=== PATIENT | female | born 1985 | race Caucasian/White ===

== ENCOUNTER 2020-12-25 21:46 | Emergency (ER) | payer OTHER, BC ==
--- NOTE | 2020-12-25 23:33 | EDM.PDOC ---
ED HPI GENERAL MEDICAL PROBLEM - General Chief Complaint: Lower Extremity Injury/Pain Stated Complaint: RT ANKLE INJURY Time Seen by Provider: 12/25/20 22:23 Source of Information: Reports: Patient History Limitations: Reports: No Limitations - History of Present Illness INITIAL COMMENTS - FREE TEXT/NARRATIVE: Patient is a 35-year-old female who twisted her right ankle while dancing in a lot of performance. Patient felt she heard a cracking sound and has had limited weightbearing ability since. She denies any other injuries or other concerns. Most of her swelling is laterally. She is taking nothing for current symptoms. Onset: Today, Sudden Duration: Constant Location: Reports: Lower Extremity, Right Quality: Reports: Ache Severity: Moderate Improves with: Reports: Rest Worsens with: Reports: Movement Context: Reports: Activity Associated Symptoms: Reports: No Other Symptoms Treatments STRANNER: Reports: Cold Therapy, NSAIDS Right Ankle Pain Score (Numeric/FACES): 2 - Related Data Allergies Allergy/AdvReac Type Severity Reaction Status Date / Time Penicillins Allergy Hives Verified 12/25/20 21:58 Home Meds: Home Meds Omeprazole 20 mg PO DAILY 12/25/20 [History] Past Medical History - Past Health History Medical/Surgical History: Denies Medical/Surgical History - Infectious Disease History Infectious Disease History: Reports: Chicken Pox, Influenza Social & Family History - Family History Family Medical History: No Pertinent Family History - Tobacco Use Tobacco Use Status *Q: Never Tobacco User Second Hand Smoke Exposure: No - Caffeine Use Caffeine Use: Reports: Coffee - Recreational Drug Use Recreational Drug Use: No Review of Systems - Review of Systems Review Of Systems: Comprehensive ROS is negative, except as noted in HPI. ED EXAM, GENERAL - Physical Exam Exam: See Below General Appearance: Alert, No Apparent Distress Head: Atraumatic Neck: Normal Inspection, Supple Respiratory/Chest: No Respiratory Distress Extremities: Joint Swelling, Leg Pain Neurological: Alert, Oriented Psychiatric: Normal Affect, Normal Mood Skin Exam: Warm, Dry, Normal Color Lymphatic: No Adenopathy Course - Vital Signs Text/Narrative:: Patient was sent for an x-ray of her ankle which shows no sign of fracture. We are placing her in an Aircast splint and crutches she is advised to stay off her ankle as long as it bothers her with use. [id number] Tylenol and ibuprofen as needed. Follow-up with PCP orthopedic provider if symptoms continue. Last Recorded V/S: Last Vital Signs Temp 98.6 F 12/25/20 22:00 Pulse 76 12/25/20 22:00 Resp 18 12/25/20 22:00 BP 128/87 12/25/20 22:00 Pulse Ox 98 12/25/20 22:00 - Orders/Labs/Meds Orders: Active Orders 24 hr Category Date Time Status Ankle Min 3V Rt [CR] Stat Exams 12/25/20 22:44 Taken Departure - Departure Time of Disposition: 23:42 Disposition: Home, Self-Care 01 Condition: Good Clinical Impression: Moderate right ankle sprain - Discharge Information Instructions: Ankle Sprain, [id number] Referrals: PCP,Not In Area [Primary Care Provider] - Forms: ED Department Discharge Additional Instructions: Follow-up with PCP or Ortho if not improving. Return to ER if worse. Aircast splint and crutches as needed. Ibuprofen and Tylenol as needed. Elevation ice while ankle swollen. Sepsis Event Note (ED) - Evaluation Sepsis Screening Result: No Definite Risk - Focused Exam Vital Signs: Vital Signs Temp Pulse Resp BP Pulse Ox 12/25/20 22:00 98.6 F 76 18 128/87 98 - My Orders Last 24 Hours: My Active Orders 12/25/20 22:44 Ankle Min 3V Rt [CR] Stat - Assessment/Plan Last 24 Hours: My Active Orders 12/25/20 22:44 Ankle Min 3V Rt [CR] Stat
--- NOTE | 2020-12-26 11:39 | CR ---
Right ankle: 3 views of the right ankle were obtained. Comparison: Prior right ankle study of 01/16/11. Soft tissue swelling is seen laterally. Ankle mortise is symmetric. Small bony densities are noted off the lateral talus compatible with mild cortical avulsion fractures. No additional fracture or other abnormality is appreciated. Impression: 1. Soft tissue swelling. 2. Small cortical avulsion fractures off the lateral talus. Diagnostic code #3
== END 2020-12-25 23:51 | disposition home or self-care (01) ==
LOC: JD.ED 21:46
DX: S93.401A Sprain of unspecified ligament of right ankle, initial encounter (principal); Z88.0 Allergy status to penicillin; X50.1XXA Overexertion from prolonged static or awkward postures, initial encounter; Y93.41 Activity, dancing
CPT/HCPCS: 73610-26-RT; 73610-RT; 99283; 99283-25

== ENCOUNTER 2020-12-27 13:59 | Emergency (ER) | payer OTHER, BC ==
--- NOTE | 2020-12-27 14:36 | EDM.PDOC ---
ED HPI GENERAL MEDICAL PROBLEM - General Chief Complaint: Lower Extremity Injury/Pain Stated Complaint: NEED SPLINT FOR RT ANKLE Time Seen by Provider: 12/27/20 14:15 Source of Information: Reports: Patient, RN Notes Reviewed - History of Present Illness INITIAL COMMENTS - FREE TEXT/NARRATIVE: 35 yr old female injured R foot ankle performing at the [facility] 2 days ago. Radiology report this morning has come back showing probable small cortical avulsion fractures off of the talus. I did call patient this morning and she has come back to ED for splint application. Still having quite a bit of discomfort, especially with any attempts at wt bearing. 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 Right Ankle Pain Score (Numeric/FACES): 9 - Related Data Allergies Allergy/AdvReac Type Severity Reaction Status Date / Time Penicillins Allergy Severe Hives Verified 12/27/20 14:28 Home Meds: Home Meds Omeprazole 20 mg PO DAILY 12/25/20 [History] Hydrocodone/Acetaminophen [Hydrocodone-Acetamin 5-325 mg] 1 each PO Q6HR PRN #14 tablet 12/27/20 [Rx] Past Medical History - Past Health History Medical/Surgical History: Denies Medical/Surgical History - Infectious Disease History Infectious Disease History: Reports: Chicken Pox, Influenza Social & Family History - Family History Family Medical History: No Pertinent Family History - Caffeine Use Caffeine Use: Reports: Coffee Review of Systems - Review of Systems Review Of Systems: See Below Constitutional: Reports: No Symptoms Respiratory: Reports: No Symptoms Cardiovascular: Reports: No Symptoms GI/Abdominal: Reports: No Symptoms Musculoskeletal: Reports: Foot Pain, Joint Pain Skin: Reports: Bruising (has developed R foot) ED EXAM, GENERAL - Physical Exam Exam: See Below General Appearance: Alert, No Apparent Distress ( at rest) Head: Atraumatic Neck: Supple Respiratory/Chest: No Respiratory Distress Extremities: Other (tender R lateral mid foot and R ankle, small amt of bruising now visible R lateral lower mid foot, nontender medially) Neurological: Alert, Oriented, No Motor/Sensory Deficits ED TRAUMA EXTREMITY PROCEDURES - Splinting Right Lower Extremity Splint Site: R foot, ankle Pre-Procedure NV Status: Normal Post-Procedure NV Status: Normal Splint Material: Fiberglass Splint Design: Posterior Applied & Form Fitted By: Provider Provider Post-Splint Application NV Check: NV Status Normal Course - Vital Signs Last Recorded V/S: Last Vital Signs Temp 97.6 F 12/27/20 14:19 Pulse 78 12/27/20 14:19 Resp 20 12/27/20 14:19 BP 128/80 12/27/20 14:19 Pulse Ox 100 12/27/20 14:19 - Re-Assessments/Exams Free Text/Narrative Re-Assessment/Exam: 12/27/20 15:38 X rays of the foot have been reviewed. cortical fragments off of the talus not readily visible but I do believe the Radiologist report. Short leg fiberglass splint applied. she has crutches. Discharge instr. as documented. Departure - Departure Time of Disposition: 14:33 Disposition: Home, Self-Care 01 Condition: Fair Clinical Impression: Foot fracture, right Qualifiers: Encounter type: initial encounter Fracture type: closed Qualified Code(s): S92.901A - Unspecified fracture of right foot, initial encounter for closed fracture Ankle sprain Qualifiers: Encounter type: initial encounter Involved ligament of ankle: unspecified ligament Laterality: right Qualified Code(s): S93.401A - Sprain of unspecified ligament of right ankle, initial encounter - Discharge Information Prescriptions: Hydrocodone/Acetaminophen [Hydrocodone-Acetamin 5-325 mg] 1 each PO Q6HR PRN #14 tablet PRN Reason: Pain Instructions: Tarsal Fracture Referrals: PCP,Not In Area [Primary Care Provider] - Forms: ED Department Discharge Additional Instructions: Our Radiologist has visualized some small bone densities off of the lateral talus bone of your R foot. Fiberglass splint. Ice packs and elevation for swelling. Alternate tylenol and ibuprofen as needed for discomfort. Hydrocodon e if needed for severe pain. Do not take tylenol and hydrocodone at the same time. [facility]. See Dr Boswell, Orthopedist later this week or early next week, call [phone] for appointment. Continue to use crutches. Try keep foot nonweight bearing as much as possible. Return to ED as needed. Sepsis Event Note (ED) - Evaluation Sepsis Screening Result: No Definite Risk - Focused Exam Vital Signs: Vital Signs Temp Pulse Resp BP Pulse Ox 12/27/20 14:19 97.6 F 78 20 128/80 100
== END 2020-12-27 14:52 | disposition home or self-care (01) ==
LOC: JD.ED 13:59
DX: S92.151A Displaced avulsion fracture (chip fracture) of right talus, initial encounter for closed fracture (principal); S93.401A Sprain of unspecified ligament of right ankle, initial encounter; Z88.0 Allergy status to penicillin; X50.1XXA Overexertion from prolonged static or awkward postures, initial encounter; Y93.41 Activity, dancing
CPT/HCPCS: 29515; 99282; 99283-25